=== PATIENT | female | born 1985 | race Caucasian/White ===

== ENCOUNTER 2019-02-19 12:29 | Emergency (ER) | payer OTHER ==
[~2019-02-19] VITALS: Ht 175.3 cm; Wt 190.5 kg
[~2019-02-19 12:29] MED LIST: CEPH500 PO; CYCL10; DOXY100 PO; ESCI10; HYDACE5 PO; METF500; POLTRIOPSO OU; SULTRIDS PO
[2019-02-19] MEDS ORDERED: KETO10 PO (12:57)
[2019-02-19] MEDS ORDERED: CRUTCH2 XX (12:57)
== END 2019-02-19 13:13 | disposition home or self-care (01) ==
LOC: ER 12:29
DX: S83.005A Unspecified dislocation of left patella, initial encounter (principal); I10 Essential (primary) hypertension; Z79.84 Long term (current) use of oral hypoglycemic drugs; Z79.899 Other long term (current) drug therapy; X58.XXXA Exposure to other specified factors, initial encounter
CPT/HCPCS: 29505; 99283-25

== ENCOUNTER 2019-03-14 18:19 | Emergency (ER) | payer OTHER ==
[~2019-03-14] VITALS: Ht 175.3 cm; Wt 181.4 kg
[~2019-03-14 18:19] MED LIST changes: +CRUTCH2 XX; +KETO10 PO
== END 2019-03-14 20:23 | disposition home or self-care (01) ==
LOC: ER 18:19
DX: M25.562 Pain in left knee (principal); I10 Essential (primary) hypertension
CPT/HCPCS: 93971; 99283-25